=== PATIENT | male | born 1975 | race Hispanic/Latino ===

== ENCOUNTER → 2019-05-20 | Outpatient (CLI) | payer OTHER | END | disposition home or self-care (01) | LOC: OIH 14:39 | PROVIDERS: ATTEND Internal Medicine | DX: Z13.6 Encounter for screening for cardiovascular disorders (principal); Z98.84 Bariatric surgery status | CPT/HCPCS: 75571 ==

== ENCOUNTER → 2023-11-29 | Outpatient (CLI) | payer OTHER | END | disposition home or self-care (01) | LOC: OIH 08:11 | PROVIDERS: ATTEND Family Medicine | DX: Z13.6 Encounter for screening for cardiovascular disorders (principal) | CPT/HCPCS: 75571 ==